=== PATIENT | female | born 1990 | race Caucasian/White ===

== ENCOUNTER 2018-05-23 20:59 | Emergency (ER) | payer SELFPAY ==
[2018-05-23] MEDS ORDERED: SUMAtriptan 6 MG/0.5 ML SDV SUBCUT ONE (21:25)
[2018-05-23] MEDS ORDERED: Ondansetron 4 MG Tab.DIS PO ONE (21:26)
--- NOTE | 2018-05-23 21:32 | EDM.PDOC ---
ED HPI GENERAL MEDICAL PROBLEM - General Chief Complaint: Headache Stated Complaint: HEADACHE Time Seen by Provider: 05/23/18 21:25 Source of Information: Reports: Patient History Limitations: Reports: No Limitations - History of Present Illness INITIAL COMMENTS - FREE TEXT/NARRATIVE: Presents with frontal headache upon awakening this morning at 6am associated with N/V and photophobia. She describes this as the worst headache of her life. No prior history of chronic headaches, however there is a strong family history of migraine headache. 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 Patient is currently menstruating. Denies injury, no fevers. Onset: Today Onset Date: 05/23/18 Onset Time: 06:00 Duration: Day(s): (1) Location: Reports: Head Quality: Reports: Dull Severity: Severe Improves with: Reports: None Worsens with: Reports: None Associated Symptoms: Reports: Nausea/Vomiting frontal head Pain Score (Numeric/FACES): 10 - Related Data Allergies Allergy/AdvReac Type Severity Reaction Status Date / Time naproxen Allergy Difficulty Verified 05/23/18 21:09 Breathing Home Meds: Home Meds Cefuroxime Axetil [Ceftin] 500 mg PO BID #14 tablet 05/24/18 [Rx] Past Medical History Other Musculoskeletal History: pins in the foot Endocrine/Metabolic History: Reports: Hypothyroidism - Past Surgical History Female Surgical History: Reports: Section Social & Family History - Family History Family Medical History: Unobtainable - Tobacco Use Smoking Status *Q: Never Smoker - Caffeine Use Caffeine Use: Reports: Coffee, Soda, Tea - Recreational Drug Use Recreational Drug Use: No ED ROS GENERAL - Review of Systems Review Of Systems: See Below Constitutional: Reports: No Symptoms HEENT: Reports: Other (photophobia) Respiratory: Reports: No Symptoms Cardiovascular: Reports: No Symptoms Endocrine: Reports: No Symptoms GI/Abdominal: Reports: Nausea, Vomiting. Denies: Abdominal Pain : Reports: No Symptoms Musculoskeletal: Reports: No Symptoms Skin: Reports: No Symptoms Neurological: Reports: Headache Psychiatric: Reports: No Symptoms Hematologic/Lymphatic: Reports: No Symptoms Immunologic: Reports: No Symptoms - Physical Exam Exam: See Below Exam Limited By: No Limitations General Appearance: Alert, WD/WN, No Apparent Distress Eye Exam: Bilateral Eye: EOMI, PERRL Ears: Normal External Exam Nose: Normal Inspection Throat/Mouth: Normal Inspection Head Exam: Atraumatic, Normocephalic Neck: Normal Inspection, Supple, Full Range of Motion Respiratory/Chest: No Respiratory Distress, Lungs Clear, Normal Breath Sounds Cardiovascular: Regular Rate, Rhythm, No Murmur GI/Abdominal: No Distention Neuro Exam (Abbreviated): Alert, No Motor/Sensory Deficits Extremities: Normal Range of Motion Psychiatric: Normal Affect, Normal Mood Skin Exam: Warm, Dry, Intact, Normal Color, No Rash Course - Vital Signs Last Recorded V/S: Last Vital Signs Temp 37.1 C 05/23/18 21:00 Pulse 98 05/23/18 21:00 Resp 16 05/23/18 21:00 BP 134/83 05/23/18 21:00 Pulse Ox 100 05/23/18 21:00 - Orders/Labs/Meds Orders: Active Orders 24 hr Category Date Time Status Ang Head [CT] Stat Exams 05/23/18 23:22 Taken Head wo Cont [CT] Stat Exams 05/23/18 21:25 Taken CULTURE URINE [RM] Stat Lab 05/23/18 22:48 Ordered HCG QUALITATIVE,URINE [URCHEM] Stat Lab 05/23/18 22:48 Ordered UA W/MICROSCOPIC [URIN] Stat Lab 05/23/18 22:48 Ordered Cefuroxime [Ceftin] Med 05/24/18 00:17 Once 500 mg PO ONETIME ONE Sodium Chloride 0.9% [Saline Flush] Med 05/23/18 21:58 Active 10 ml FLUSH ASDIRECTED PRN Saline Lock Insert [OM.PC] Routine Oth 05/23/18 21:58 Ordered Medication Orders Sodium Chloride (Saline Flush) 10 ml FLUSH ASDIRECTED PRN PRN Reason: Keep Vein Open Last Admin: 05/23/18 22:20 Dose: 10 ml Labs: Laboratory Tests 05/23/18 05/23/18 05/23/18 Range/Units 22:30 22:30 22:48 WBC 9.6 (4.5-12.0) X10-3/uL RBC 4.52 (3.23-5.20) x10(6)uL Hgb 13.3 (11.5-15.5) g/dL Hct 38.8 (30.0-51.3) % MCV 85.8 (80-96) fL MCH 29.4 (27.7-33.6) pg MCHC 34.2 (32.2-35.4) g/dL RDW 12.6 (11.5-15.5) % Plt Count 218 (125-369) X10(3)uL MPV 8.3 (7.4-10.4) fL Neut % (Auto) 77.2 (46-82) % Lymph % (Auto) 16.6 (13-37) % [place] % (Auto) 5.4 (4-12) % Eos % (Auto) 0 L (1.0-5.0) % Baso % (Auto) 1 (0-2) % Neut # (Auto) 7.4 (1.6-8.3) # Lymph # (Auto) 1.6 (0.6-5.0) # [place] # (Auto) 0.5 (0.0-1.3) # Eos # (Auto) 0.0 (0.0-0.8) # Baso # (Auto) 0.1 (0.0-0.2) # Sodium 139 (135-145) mmol/L Potassium 3.5 (3.5-5.3) mmol/L Chloride 105 (100-110) mmol/L Carbon Dioxide 26 (21-32) mmol/L BUN 11 (7-18) mg/dL Creatinine 0.8 (0.55-1.02) mg/dL Est Cr Clr Drug Dosing 98.01 mL/min Estimated GFR (MDRD) > 60 (>60) BUN/Creatinine Ratio 13.8 (9-20) Glucose 118 H (80-116) mg/dL Calcium 8.6 (8.6-10.2) mg/dL Total Bilirubin 0.5 (0.1-1.3) mg/dL AST 21 (5-25) IU/L ALT 43 H (12-36) U/L Alkaline Phosphatase 73 (56-112) IU/L Total Protein 7.9 (6.0-8.0) g/dL Albumin 3.4 L (3.5-5.2) g/dL Globulin 4.5 g/dL Albumin/Globulin Ratio 0.8 Urine Color Yellow (YELLOW) Urine Appearance Slightly cloudy (CLEAR) Urine pH 7.0 H (5.0-6.5) Ur Specific [place] 1.005 L (1.010-1.025) Urine Protein Negative (NEGATIVE) mg/dL Urine Glucose (UA) Normal (NEGATIVE) mg/dL Urine Ketones Negative (NEGATIVE) mg/dL Urine Occult Blood Negative (NEGATIVE) Urine Nitrite Negative (NEGATIVE) Urine Bilirubin Negative (NEGATIVE) Urine Urobilinogen Normal (NEGATIVE) mg/dL Ur Leukocyte Esterase Moderate H (NEGATIVE) Urine RBC 0-5 (0) Urine WBC 10-20 H (0) Ur Squamous Epith Cells Few H (NS,R,O) Urine Bacteria Moderate H (NS) Urine HCG, Qual (NEGATIVE) 05/23/18 Range/Units 22:48 WBC (4.5-12.0) X10-3/uL RBC (3.23-5.20) x10(6)uL Hgb (11.5-15.5) g/dL Hct (30.0-51.3) % MCV (80-96) fL MCH (27.7-33.6) pg MCHC (32.2-35.4) g/dL RDW (11.5-15.5) % Plt Count (125-369) X10(3)uL MPV (7.4-10.4) fL Neut % (Auto) (46-82) % Lymph % (Auto) (13-37) % [place] % (Auto) (4-12) % Eos % (Auto) (1.0-5.0) % Baso % (Auto) (0-2) % Neut # (Auto) (1.6-8.3) # Lymph # (Auto) (0.6-5.0) # [place] # (Auto) (0.0-1.3) # Eos # (Auto) (0.0-0.8) # Baso # (Auto) (0.0-0.2) # Sodium (135-145) mmol/L Potassium (3.5-5.3) mmol/L Chloride (100-110) mmol/L Carbon Dioxide (21-32) mmol/L BUN (7-18) mg/dL Creatinine (0.55-1.02) mg/dL Est Cr Clr Drug Dosing mL/min Estimated GFR (MDRD) (>60) BUN/Creatinine Ratio (9-20) Glucose (80-116) mg/dL Calcium (8.6-10.2) mg/dL Total Bilirubin (0.1-1.3) mg/dL AST (5-25) IU/L ALT (12-36) U/L Alkaline Phosphatase (56-112) IU/L Total Protein (6.0-8.0) g/dL Albumin (3.5-5.2) g/dL Globulin g/dL Albumin/Globulin Ratio Urine Color (YELLOW) Urine Appearance (CLEAR) Urine pH (5.0-6.5) Ur Specific [place] (1.010-1.025) Urine Protein (NEGATIVE) mg/dL Urine Glucose (UA) (NEGATIVE) mg/dL Urine Ketones (NEGATIVE) mg/dL Urine Occult Blood (NEGATIVE) Urine Nitrite (NEGATIVE) Urine Bilirubin (NEGATIVE) Urine Urobilinogen (NEGATIVE) mg/dL Ur Leukocyte Esterase (NEGATIVE) Urine RBC (0) Urine WBC (0) Ur Squamous Epith Cells (NS,R,O) Urine Bacteria (NS) Urine HCG, Qual Negative (NEGATIVE) Meds: Medications Generic Name Dose Route Start Last Admin Trade Name Rafael PRN Reason Stop Dose Admin Sodium Chloride 10 ml 05/23/18 21:58 05/23/18 22:20 Saline Flush FLUSH 10 ml ASDIRECTED PRN Administration Keep Vein Open Discontinued Medications Generic Name Dose Route Start Last Admin Trade Name Rafael PRN Reason Stop Dose Admin Hydromorphone HCl 1 mg 05/23/18 22:00 05/23/18 22:04 Dilaudid IVPUSH 05/23/18 22:01 Not Given ONETIME ONE Hydromorphone HCl 1 mg 05/23/18 22:01 05/23/18 22:22 Dilaudid IVPUSH 05/23/18 22:02 1 mg ONETIME ONE Administration Hydromorphone HCl 1 mg 05/23/18 23:35 05/23/18 23:39 Dilaudid IVPUSH 05/23/18 23:36 1 mg ONETIME ONE Administration Sodium Chloride 1,000 mls @ 999 mls/hr 05/23/18 21:58 05/23/18 22:20 Normal Saline IV 05/23/18 22:58 999 mls/hr .BOLUS ONE Administration Iopamidol 75 ml 05/23/18 23:13 05/23/18 23:27 Isovue-370 (76%) IV 05/23/18 23:14 75 ml ONETIME ONE Administration Ondansetron HCl 4 mg 05/23/18 21:26 05/23/18 21:29 Zofran Odt PO 05/23/18 21:27 4 mg ONETIME ONE Administration Ondansetron HCl 4 mg 05/23/18 22:00 05/23/18 22:21 Zofran IVPUSH 05/23/18 22:01 4 mg ONETIME ONE Administration Sumatriptan Succinate 6 mg 05/23/18 21:25 05/23/18 21:30 Imitrex SUBCUT 05/23/18 21:26 6 mg ONETIME ONE Administration - Radiology Interpretation Free Text/Narrative:: CT Head: NAD CTA Head: No stenosis, occlusion or aneurysm noted. - Re-Assessments/Exams Free Text/Narrative Re-Assessment/Exam: 05/23/18 22:00 Pain improved somewhat after Imitrex 6mg SC 05/24/18 00:18 Symptoms have improved Departure - Departure Time of Disposition: 00:18 Disposition: Home, Self-Care 01 Condition: Good Clinical Impression: Cephalgia Qualifiers: Headache type: unspecified Headache chronicity pattern: acute headache Intractability: not intractable Qualified Code(s): R51 - Headache UTI (urinary tract infection) Qualifiers: Urinary tract infection type: acute cystitis Hematuria presence: without hematuria Qualified Code(s): N30.00 - Acute cystitis without hematuria - Discharge Information *PRESCRIPTION DRUG MONITORING PROGRAM REVIEWED*: No *COPY OF PRESCRIPTION DRUG MONITORING REPORT IN PATIENT ANURADHA: Not Applicable Prescriptions: Cefuroxime Axetil [Ceftin] 500 mg PO BID #14 tablet Referrals: Brayden Duffy MD [Primary Care Provider] - Forms: ED Department Discharge Additional Instructions: Rest, fluids, follow up with your doctor in 2-3 days, return to the ER if symptoms worsen. - My Orders Last 24 Hours: My Active Orders 05/23/18 21:25 Head wo Cont [CT] Stat 05/23/18 21:58 Sodium Chloride 0.9% [Saline Flush] 10 ml FLUSH ASDIRECTED PRN Saline Lock Insert [OM.PC] Routine 05/23/18 22:48 CULTURE URINE [RM] Stat HCG QUALITATIVE,URINE [URCHEM] Stat UA W/MICROSCOPIC [URIN] Stat 05/23/18 23:22 Ang Head [CT] Stat 05/24/18 00:17 Cefuroxime [Ceftin] 500 mg PO ONETIME ONE - Assessment/Plan Last 24 Hours: My Active Orders 05/23/18 21:25 Head wo Cont [CT] Stat 05/23/18 21:58 Sodium Chloride 0.9% [Saline Flush] 10 ml FLUSH ASDIRECTED PRN Saline Lock Insert [OM.PC] Routine 05/23/18 22:48 CULTURE URINE [RM] Stat HCG QUALITATIVE,URINE [URCHEM] Stat UA W/MICROSCOPIC [URIN] Stat 05/23/18 23:22 Ang Head [CT] Stat 05/24/18 00:17 Cefuroxime [Ceftin] 500 mg PO ONETIME ONE
[2018-05-23] MEDS ORDERED: Sodium Chloride 0.9% 1,000 ML IV ONE (21:58)
[2018-05-23] MEDS ORDERED: Sodium Chloride 0.9% 10 ML Syringe FLUSH PRN (21:58)
[2018-05-23] MEDS ORDERED: Ondansetron 4 MG/2 ML SDV IVPUSH ONE (22:00)
[2018-05-23] MEDS ORDERED: HYDROmorphone 2 MG/ML SDV IVPUSH ONE ×3 (22:00→23:35)
[2018-05-23] MEDS ORDERED: Iopamidol 755 Mg/ML 75 ML Bottle IV ONE (23:13)
[2018-05-24] MEDS ORDERED: Cefuroxime 250 MG Tab PO ONE (00:17)
== END 2018-05-24 00:45 | disposition home or self-care (01) ==
LOC: FB.ED 20:59
DX: N30.00 Acute cystitis without hematuria (principal); R51 Headache; Z88.8 Allergy status to other drugs, medicaments and biological substances
CPT/HCPCS: 36415; 70450; 70496; 80053; 81001; 81025; 85025; 87086; 96361; 96372; 96374; 96375; 96376; 99284; A9270; J1170; J2405; J3030; J7030; J7050; Q9967

== ENCOUNTER 2021-06-09 21:21 | Emergency (ER) | payer BC ==
[2021-06-09] MEDS ORDERED: Metoclopramide 10 MG/2 ML SDV IVPUSH ONE (22:24)
[2021-06-09] MEDS ORDERED: Ketorolac 30 MG/ML SDV IVPUSH ONE (22:24)
[2021-06-09] MEDS ORDERED: methylPREDNISolone Sodium Succinate 125 MG/2 ML SDV IVPUSH ONE (22:25)
[2021-06-09] MEDS ORDERED: Amoxicillin/Clavulanate K 875-125 MG Tab PO ONE (22:26)
[2021-06-09] MEDS ORDERED: Sodium Chloride 0.9% 1,000 ML IV ONE (22:28)
--- NOTE | 2021-06-09 22:32 | EDM.PDOC ---
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, no fever, not been ill, no cough/rhinorrhea working today in [place] (lives in [place], mother lives in [place] where pt says she goes when ill), felt fine this AM, localized BHATTI in occiput at 1p without radiation, APAP and Excedrin Migraine helped only a little denies allergies altho has been on Flonase in past last BHATTI was 2y ago when she came to ED and head CT showed pansinusitis pt declined CT/CBC/CRP today, it is highly likely she has recurrent pansinusitis (nasal mucosa swollen, retraction of TMs) mother given a copy of head CT from 2y ago and said that she would make sure pt got into see ENT pt's had been concerned re cost of CT and labs 2y ago pt on no regular meds PCP [facility], has not seen in 2y, did not see after ED visit 2y ago for BHATTI PMH: aseptic meningitis, prematurity, 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 PSH: tympanostomy tubes as child not had COVID vax/illness Treatments 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, NSAIDS Headache Pain Score (Numeric/FACES): 8 - Related Data Allergies Allergy/AdvReac Type Severity Reaction Status Date / Time vancomycin Allergy Rash Verified 01/25/19 19:53 bees Allergy Difficulty Uncoded 01/25/19 13:30 Breathing Home Meds: Home Meds Amoxicillin/Potassium Clav [Amox Tr-K Clv 875-125 mg Tab] 1 each PO BID #20 tablet 06/09/21 [Rx] Fluticasone Propionate 16 gm NS ASDIRECTED #1 container 06/09/21 [Rx] Loratadine 10 mg PO DAILY #30 tablet 06/09/21 [Rx] predniSONE 20 mg PO ASDIRECTED #9 tab 06/09/21 [Rx] Past Medical History Genitourinary History: Reports: None AIR TUCKER History: Reports: Other AIR TUCKER History: Musculoskeletal History: Reports: Fracture Other Musculoskeletal History: pins in bilat feet for bunion repair Neurological History: Reports: Concussion, Other (See Below) Other Neuro History: Viral meningitis, May 2018. Endocrine/Metabolic History: Reports: Hypothyroidism, Obesity/BMI 30+ - Infectious Disease History Infectious Disease History: Reports: Chicken Pox, Meningitis - Past Surgical History HEENT Surgical History: Reports: Adenoidectomy, Detached Retina, Eye Surgery, Myringotomy w Tube(s), Oral Surgery, Tonsillectomy Female Surgical History: Reports: Section Musculoskeletal Surgical History: Reports: Other (See Below) Other Musculoskeletal Surgeries/Procedures:: bunion repair bilat Social & Family History - Family History Family Medical History: No Pertinent Family History Neurological: Reports: Migraines - Tobacco Use Tobacco Use Status *Q: Never Tobacco User - Caffeine Use Caffeine Use: Reports: Coffee, Soda Other Caffeine Use: Occasional - Recreational Drug Use Recreational Drug Use: No ED ROS GENERAL - Review of Systems Review Of Systems: See Below Constitutional: Reports: No Symptoms HEENT: Reports: No Symptoms Respiratory: Reports: No Symptoms Cardiovascular: Reports: No Symptoms Endocrine: Reports: No Symptoms GI/Abdominal: Reports: Nausea : Reports: No Symptoms Musculoskeletal: Reports: No Symptoms Skin: Reports: No Symptoms Neurological: Reports: Headache Psychiatric: Reports: No Symptoms Hematologic/Lymphatic: Reports: No Symptoms Immunologic: Reports: No Symptoms - Physical Exam Exam: See Below Exam Limited By: No Limitations General Appearance: Alert, WD/WN Ears: Normal Canal, Hearing Grossly Normal, Other (thin TM in lower quadrant (at tube sites) that is retracted, pale, otherwise wnl) Nose: Other (60% swell nasal mucosa b/l, no d/c observed) Throat/Mouth: Normal Lips, Normal Teeth, Normal Gums, Normal Oropharynx, No Airway Compromise, Other (shoddy submandibular LNs b/l, soft voice) Head Exam: Atraumatic, Normocephalic Neck: Supple, Non-Tender, Full Range of Motion Respiratory/Chest: No Respiratory Distress, Lungs Clear, Normal Breath Sounds, No Accessory Muscle Use Course - Vital Signs Last Recorded V/S: Last Vital Signs Temp 36.9 C 06/09/21 21:46 Pulse 78 06/09/21 21:46 Resp 18 06/09/21 21:46 BP 142/89 H 06/09/21 21:46 Pulse Ox 97 06/09/21 21:46 - Orders/Labs/Meds Orders: Active Orders 24 hr Category Date Time Status Loratadine [Claritin] Med 06/09/21 22:58 Once 10 mg PO ONETIME ONE Sodium Chloride 0.9% [Normal Saline] 1,000 ml Med 06/09/21 22:28 Ordered IV .BOLUS diphenhydrAMINE [Benadryl] Med 06/09/21 22:58 Once 25 mg IVPUSH ONETIME ONE Medication Orders Sodium Chloride (Normal Saline) 1,000 mls @ 999 mls/hr IV .BOLUS ONE Stop: 06/09/21 23:28 Last Admin: 06/09/21 22:35 Dose: 999 mls/hr Documented by: Meds: Medications Generic Name Dose Route Start Last Admin Trade Name Freq PRN Reason Stop Dose Admin Sodium Chloride 1,000 mls @ 999 mls/hr 06/09/21 22:28 06/09/21 22:35 Normal Saline IV 06/09/21 23:28 999 mls/hr .BOLUS ONE Administration Discontinued Medications Generic Name Dose Route Start Last Admin Trade Name Freq PRN Reason Stop Dose Admin 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 1,000 mg 06/09/21 22:53 06/09/21 22:57 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 500 Mg Tab PO 06/09/21 22:54 1,000 mg ONETIME ONE Administration Amoxicillin/Clavulanate Potassium 1 tab 06/09/21 22:26 06/09/21 22:56 Amoxicillin/Clavulanate K 875-125 Mg Tab PO 06/09/21 22:27 1 tab ONETIME ONE Administration Ketorolac Tromethamine 30 mg 06/09/21 22:24 06/09/21 22:36 Ketorolac 30 Mg/Ml Sdv IVPUSH 06/09/21 22:25 30 mg ONETIME ONE Administration Methylprednisolone Sodium Succinate 125 mg 06/09/21 22:25 06/09/21 22:35 Methylprednisolone Sodium Succinate 125 Mg/2 Ml Sdv IVPUSH 06/09/21 22:26 125 mg ONETIME ONE Administration Metoclopramide HCl 10 mg 06/09/21 22:24 06/09/21 22:35 Metoclopramide 10 Mg/2 Ml Sdv IVPUSH 06/09/21 22:25 10 mg ONETIME ONE Administration - Re-Assessments/Exams Free Text/Narrative Re-Assessment/Exam: 06/09/21 22:59 pain went from 8/10 to 3/10 after meds (Solu-Medrol, Reglan Toradol) the click of the IV pump was annoying and pt asked for it to be stopped pt eager to go home, will give apap/Benadryl/loratadine prior to d/c Rx sent in to pharmacy Departure - Departure Time of Disposition: 23:00 Disposition: Home, Self-Care 01 Condition: Good Clinical Impression: Sinus headache, Chronic allergic rhinitis, Sinusitis - Discharge Information *PRESCRIPTION DRUG MONITORING PROGRAM REVIEWED*: Not Applicable *COPY OF PRESCRIPTION DRUG MONITORING REPORT IN PATIENT ANURADHA: Not Applicable Prescriptions: Amoxicillin/Potassium Clav [Amox Tr-K Clv 875-125 mg Tab] 1 each PO BID #20 tablet Fluticasone Propionate 16 gm NS ASDIRECTED #1 container Loratadine 10 mg PO DAILY #30 tablet predniSONE 20 mg PO ASDIRECTED #9 tab Instructions: Sinusitis, Adult, Sinus Headache, Allergic Rhinitis, Adult Referrals: Brayden Duffy MD [Primary Care Provider] - Forms: ED Department Discharge Additional Instructions: For pain and inflammation, take ibuprofen 600 mg 3 tabs and acetaminophen 500 mg 2 tabs 4 times a day for 2 days, longer if needed. For pain, use ice packs for 10 minutes every 2 hours as needed. For nasal swelling, use fluticasone nasal spray 2 sprays per nares daily until you receive different instruction from the ENT physician. For allergies, take loratadine 10 mg 1 tab daily. For nasal and sinus swelling, take prednisone 20 mg 2 tabs daily for 2 days, then 1 tab daily for 5 days. For sinus infection, take amoxicillin-clavulanate 875-125 mg 1 tab 2 times a day for 7 days. See ENT physician in 1-2 weeks. While some individuals are able to use a steroid nasal spray like fluticasone and an oral antihistamine like loratadine to keep the ostiomeatal complex open in order to allow the sinuses to drain, some individuals need surgery to open up the passage way. Return to Emergency Department if you are feeling worse despite the above measures. Sepsis Event Note (ED) - Evaluation Sepsis Screening Result: No Definite Risk - Focused Exam Vital Signs: Vital Signs Temp Pulse Resp BP Pulse Ox 06/09/21 21:46 36.9 C 78 18 142/89 H 97 - My Orders Last 24 Hours: My Active Orders 06/09/21 22:28 Sodium Chloride 0.9% [Normal Saline] 1,000 ml IV .BOLUS 06/09/21 22:58 Loratadine [Claritin] 10 mg PO ONETIME ONE diphenhydrAMINE [Benadryl] 25 mg IVPUSH ONETIME ONE - Assessment/Plan Last 24 Hours: My Active Orders 06/09/21 22:28 Sodium Chloride 0.9% [Normal Saline] 1,000 ml IV .BOLUS 06/09/21 22:58 Loratadine [Claritin] 10 mg PO ONETIME ONE diphenhydrAMINE [Benadryl] 25 mg IVPUSH ONETIME ONE
[2021-06-09] MEDS ORDERED: Acetaminophen 500 MG Tab PO ONE (22:53)
[2021-06-09] MEDS ORDERED: diphenhydrAMINE 50 MG/ML SDV IVPUSH ONE (22:58)
[2021-06-09] MEDS ORDERED: Loratadine 10 MG Tab PO ONE (22:58)
== END 2021-06-09 23:08 | disposition home or self-care (01) ==
LOC: FB.ED 21:21
DX: J30.9 Allergic rhinitis, unspecified (principal); J32.9 Chronic sinusitis, unspecified; Z91.030 Bee allergy status; Z88.1 Allergy status to other antibiotic agents
CPT/HCPCS: 96374; 96375; 99283; A9270; J1200; J1885; J2765; J2930; J7030